=== PATIENT | male | born 1970 | race Caucasian/White ===

== ENCOUNTER → 2021-10-23 | Outpatient (CLI) | payer BC ==
[2021-10-23 09:16] LABS: ALBUMIN 4.3 g/dL (3.5-5.0); POTASSIUM 4.2 mmol/L (3.5-5.1)
[2021-10-23 09:17] LABS: CALCIUM 9.5 mg/dL (8.3-10.5)
[2021-10-23 09:18] LABS: TOTAL PROTEIN 7.8 g/dL (6.4-8.3)
[2021-10-23 09:20] LABS: TOTAL BILIRUBIN 0.6 mg/dL (0.2-1.2)
== END ==
LOC: LAB 08:46
PROVIDERS: Internal Medicine
DX: K90.9 Intestinal malabsorption, unspecified (principal); I10 Essential (primary) hypertension

== ENCOUNTER → 2022-01-03 | Outpatient (CLI) | payer BC ==
[2022-01-03 11:46] LABS: ALBUMIN 4.4 g/dL (3.5-5.0); POTASSIUM 4.3 mmol/L (3.5-5.1)
[2022-01-03 11:47] LABS: CALCIUM 9.6 mg/dL (8.3-10.5)
[2022-01-03 11:48] LABS: TOTAL PROTEIN 7.7 g/dL (6.4-8.3)
[2022-01-03 11:50] LABS: TOTAL BILIRUBIN 0.4 mg/dL (0.2-1.2)
[2022-01-03 11:54] LABS: DIRECT BILIRUBIN 0.2 mg/dL (0.0-0.5)
== END ==
LOC: LAB 11:23
PROVIDERS: Internal Medicine
DX: E11.9 Type 2 diabetes mellitus without complications (principal); I10 Essential (primary) hypertension; E78.2 Mixed hyperlipidemia; R74.8 Abnormal levels of other serum enzymes

== ENCOUNTER → 2023-01-03 | Outpatient (CLI) | payer BC ==
[2023-01-03 15:22] LABS: BASO # 0.01 K/mm3 (0.02-0.10); EOS # 0.16 K/mm3 (0.04-0.40); EOS % 2.1 % (0.0-4.0); HEMATOCRIT 45.8 % (42.0-52.0); HEMOGLOBIN 14.9 g/dL (13.5-18.0); LYMPH# 1.73 K/mm3 (1.50-4.00); MEAN CELL VOLUME 93 fl (78-100); MEAN CORPUSCULAR HEMOGLOBIN 30 pg (27-31); MEAN CORPUSCULAR HGB CONC 33 g/dL (33-37); MEAN PLATELET VOLUME 10.2 fl (7.4-10.4); MONO # 0.61 K/mm3 (0.20-0.80); NEU # 5.13 K/mm3 (1.40-6.50); PLATELET COUNT 251 K/mm3 (130-400); RED BLOOD COUNT 4.92 M/mm3 (4.20-5.60); RED CELL DISTRIBUTION WIDTH 12.8 % (11.5-14.5); WHITE BLOOD COUNT 7.7 K/mm3 (4.8-10.8)
[2023-01-03 15:39] LABS: ALBUMIN 4.4 g/dL (3.5-5.0); POTASSIUM 4.3 mmol/L (3.5-5.1)
[2023-01-03 15:40] LABS: CALCIUM 9.8 mg/dL (8.3-10.5)
[2023-01-03 15:42] LABS: TOTAL PROTEIN 7.5 g/dL (6.4-8.3)
[2023-01-03 15:43] LABS: TOTAL BILIRUBIN 0.6 mg/dL (0.2-1.2)
[2023-01-03 15:46] LABS: URINE APPEARANCE CLEAR; URINE BILIRUBIN NEGATIVE (NEGATIVE); URINE BLOOD NEGATIVE (NEGATIVE); URINE COLOR YELLOW; URINE GLUCOSE NEGATIVE (NEGATIVE); URINE KETONE NEGATIVE (NEGATIVE); URINE LEUKOCYTE ESTERASE NEGATIVE (NEGATIVE); URINE MUCUS PRESENT (NOT PRESENT); URINE NITRATE NEGATIVE (NEGATIVE); URINE PROTEIN(semi-quant) NEGATIVE (NEGATIVE); URINE UROBILINOGEN NORMAL (NORMAL); URINE WBC 0-1 /hpf (0-3)
[2023-01-03 15:49] LABS: MAGNESIUM 1.94 mg/dL (1.60-2.60)
== END ==
LOC: LAB 14:50
PROVIDERS: Internal Medicine
DX: Z00.00 Encounter for general adult medical examination without abnormal findings (principal); Z12.5 Encounter for screening for malignant neoplasm of prostate; Z12.11 Encounter for screening for malignant neoplasm of colon; M10.9 Gout, unspecified; E11.9 Type 2 diabetes mellitus without complications; I10 Essential (primary) hypertension; E78.2 Mixed hyperlipidemia; R74.8 Abnormal levels of other serum enzymes

== ENCOUNTER → 2023-09-02 | Outpatient (CLI) | payer BC ==
[2023-09-02 09:47] LABS: BASO # 0.02 K/mm3 (0.02-0.10); EOS % 1.6 % (0.0-4.0); HEMATOCRIT 45.3 % (42.0-52.0); MEAN CELL VOLUME 93 fl (78-100); MEAN CORPUSCULAR HEMOGLOBIN 31 pg (27-31); MEAN CORPUSCULAR HGB CONC 33 g/dL (33-37); MEAN PLATELET VOLUME 10.6 fl (7.4-10.4); MONO # 0.38 K/mm3 (0.20-0.80); NEU # 4.61 K/mm3 (1.40-6.50); PLATELET COUNT 190 K/mm3 (130-400); RED BLOOD COUNT 4.86 M/mm3 (4.20-5.60); RED CELL DISTRIBUTION WIDTH 12.9 % (11.5-14.5); WHITE BLOOD COUNT 6.1 K/mm3 (4.8-10.8)
[2023-09-02 09:54] LABS: ALBUMIN 4.2 g/dL (3.5-5.0); POTASSIUM 4.4 mmol/L (3.5-5.1)
[2023-09-02 09:55] LABS: CALCIUM 9.4 mg/dL (8.3-10.5)
[2023-09-02 09:59] LABS: TOTAL BILIRUBIN 0.5 mg/dL (0.2-1.2)
[2023-09-02 10:03] LABS: MAGNESIUM 1.7 mg/dL (1.60-2.60)
[2023-09-02 22:12] LABS: PTH,INTACT 33.4 pg/mL (6.6-88.9)
[2023-09-02 23:11] LABS: CALCIUM, IONIZED, SERUM 1.19 mmol/L (1.19-1.41)
== END ==
LOC: LAB 09:20
PROVIDERS: Internal Medicine
DX: E11.9 Type 2 diabetes mellitus without complications (principal); I10 Essential (primary) hypertension; M13.80 Other specified arthritis, unspecified site; E78.2 Mixed hyperlipidemia; M85.89 Other specified disorders of bone density and structure, multiple sites; R74.8 Abnormal levels of other serum enzymes

== ENCOUNTER → 2024-01-05 | Outpatient (CLI) | payer BC ==
[2024-01-05 14:29] LABS: BASO # 0.03 K/mm3 (0.02-0.10); EOS # 0.17 K/mm3 (0.04-0.40); EOS % 1.9 % (0.0-4.0); HEMATOCRIT 45.8 % (42.0-52.0); HEMOGLOBIN 15.3 g/dL (13.5-18.0); LYMPH# 1.77 K/mm3 (1.50-4.00); MEAN CELL VOLUME 91 fl (78-100); MEAN CORPUSCULAR HEMOGLOBIN 31 pg (27-31); MEAN CORPUSCULAR HGB CONC 33 g/dL (33-37); MEAN PLATELET VOLUME 10.4 fl (7.4-10.4); MONO # 0.74 K/mm3 (0.20-0.80); NEU # 6.16 K/mm3 (1.40-6.50); PLATELET COUNT 222 K/mm3 (130-400); RED BLOOD COUNT 5.01 M/mm3 (4.20-5.60); RED CELL DISTRIBUTION WIDTH 12.5 % (11.5-14.5); WHITE BLOOD COUNT 8.9 K/mm3 (4.8-10.8)
[2024-01-05 14:32] LABS: ALBUMIN 4.4 g/dL (3.5-5.0)
[2024-01-05 14:34] LABS: TOTAL PROTEIN 7.4 g/dL (6.4-8.3)
[2024-01-05 14:36] LABS: TOTAL BILIRUBIN 0.4 mg/dL (0.2-1.2)
[2024-01-05 14:41] LABS: MAGNESIUM 1.8 mg/dL (1.60-2.60)
[2024-01-05 15:16] LABS: URINE APPEARANCE CLEAR (CLEAR); URINE COLOR YELLOW (YELLOW)
[2024-01-05 15:17] LABS: PH-URINE 5.5 (5.0 - 8.0); URINE BILIRUBIN NEGATIVE (NEGATIVE); URINE BLOOD NEGATIVE (NEGATIVE); URINE GLUCOSE NEGATIVE (NEGATIVE); URINE KETONE NEGATIVE (NEGATIVE); URINE LEUKOCYTE ESTERASE NEGATIVE (NEGATIVE); URINE NITRATE NEGATIVE (NEGATIVE); URINE PROTEIN(semi-quant) NEGATIVE (NEGATIVE); URINE WBC 0-1 /hpf (0-3)
[2024-01-05 23:13] LABS: TESTOSTERONE 427 ng/dL (221-716)
== END ==
LOC: LAB 14:09
PROVIDERS: Internal Medicine
DX: Z00.00 Encounter for general adult medical examination without abnormal findings (principal); Z12.5 Encounter for screening for malignant neoplasm of prostate; Z12.11 Encounter for screening for malignant neoplasm of colon; M10.9 Gout, unspecified

== ENCOUNTER → 2024-07-02 | Outpatient (CLI) | payer BC | LOC: LAB 13:57 | DX: E11.9 Type 2 diabetes mellitus without complications (principal) ==

== ENCOUNTER 2024-12-17 09:20 | Emergency (ER) | payer BC ==
[~2024-12-17] VITALS: Ht 180.3 cm; Wt 118.2 kg
[2024-12-17] MEDS ORDERED: GLUCOPHAGE PO (09:36)
[2024-12-17] MEDS ORDERED: ATORVASTATIN CA20 MG PO (09:36)
[2024-12-17] MEDS ORDERED: LISINOPRIL10 MG PO (09:36)
[2024-12-17] MEDS ORDERED: ASPIRIN 81M81 MG/TA2 PO (09:37)
[2024-12-17] MEDS ORDERED: ALEVE220 M1 PO (09:37)
[2024-12-17] MEDS ORDERED: VITAMIN B12500 MC2 PO (09:38)
[2024-12-17] MEDS ORDERED: PREDNISONE20 M1 PO (10:18)
[2024-12-17 10:38] VITALS: BP 132/80
== END 2024-12-17 10:38 | disposition home or self-care (01) ==
LOC: ED 09:20
DX: M25.532 Pain in left wrist (principal); E66.01 Morbid (severe) obesity due to excess calories; Z68.36 Body mass index [BMI] 36.0-36.9, adult; Z79.82 Long term (current) use of aspirin

== ENCOUNTER → 2025-01-07 | Outpatient (CLI) | payer BC ==
[~2025-01-07] MED LIST: ALEVE220 M1 PO; ASPIRIN 81M81 MG/TA2 PO; ATORVASTATIN CA20 MG PO; GLUCOPHAGE PO; LISINOPRIL10 MG PO; PREDNISONE20 M1 PO; VITAMIN B12500 MC2 PO
[2025-01-07 15:17] LABS: BASO # 0.02 K/mm3 (0.02-0.10); EOS # 0.18 K/mm3 (0.04-0.40); EOS % 2.1 % (0.0-4.0); HEMATOCRIT 45.5 % (42.0-52.0); LYMPH# 1.47 K/mm3 (1.50-4.00); MEAN CELL VOLUME 93 fl (78-100); MEAN CORPUSCULAR HEMOGLOBIN 31 pg (27-31); MEAN CORPUSCULAR HGB CONC 33 g/dL (33-37); MEAN PLATELET VOLUME 10.2 fl (7.4-10.4); MONO # 0.63 K/mm3 (0.20-0.80); NEU # 6.14 K/mm3 (1.40-6.50); PLATELET COUNT 220 K/mm3 (130-400); RED BLOOD COUNT 4.92 M/mm3 (4.20-5.60); WHITE BLOOD COUNT 8.5 K/mm3 (4.8-10.8)
[2025-01-07 15:23] LABS: ALBUMIN 4.1 g/dL (3.5-5.0)
[2025-01-07 15:24] LABS: CALCIUM 9.5 mg/dL (8.3-10.5)
[2025-01-07 15:26] LABS: TOTAL PROTEIN 7.4 g/dL (6.4-8.3)
[2025-01-07 15:27] LABS: TOTAL BILIRUBIN 0.3 mg/dL (0.2-1.2)
[2025-01-07 15:32] LABS: MAGNESIUM 1.87 mg/dL (1.60-2.60)
[2025-01-07 15:34] LABS: URINE APPEARANCE CLEAR (CLEAR); URINE COLOR YELLOW (YELLOW)
[2025-01-07 15:40] LABS: PH-URINE 5.5 (5.0 - 8.0)
[2025-01-07 15:41] LABS: URINE BILIRUBIN NEGATIVE (NEGATIVE); URINE BLOOD NEGATIVE (NEGATIVE); URINE GLUCOSE 2+ (NEGATIVE); URINE KETONE TRACE (NEGATIVE); URINE LEUKOCYTE ESTERASE NEGATIVE (NEGATIVE); URINE NITRATE NEGATIVE (NEGATIVE); URINE PROTEIN(semi-quant) NEGATIVE (NEGATIVE); URINE WBC 0-1 /hpf (0-3)
== END ==
LOC: LAB 14:58
PROVIDERS: Internal Medicine
DX: Z00.00 Encounter for general adult medical examination without abnormal findings (principal); Z12.5 Encounter for screening for malignant neoplasm of prostate; Z12.11 Encounter for screening for malignant neoplasm of colon; E78.2 Mixed hyperlipidemia; M10.9 Gout, unspecified; E11.9 Type 2 diabetes mellitus without complications; I10 Essential (primary) hypertension; K90.9 Intestinal malabsorption, unspecified